=== PATIENT | female | born 2000 | race Caucasian/White ===

== ENCOUNTER 2019-03-17 13:38 | Emergency (ER) | payer MEDICAID ==
[~2019-03-17] VITALS: Ht 157 cm; Wt 57.0 kg
[~2019-03-17 13:38] MED LIST: ACET118E; CLN.1T; CONCERTA; IBUP-792; MIRLAX; PHENERGAN; PRM25T; PROM25SU10 PR; concerta
--- NOTE | 2019-03-17 13:58 | ED GU-Female ---
General Chief Complaint: RESIDENTIAL DIRECTOR Stated Complaint: VAGINAL DISCHARGE;CRAMPING; 12WKS Nursing Triage Note: COMPLAINS OF ABD CRAMPING AND WHITE DISCHARGE STARTING YESTERDAY. REPORTS SHE IS 12 WEEKS GESTATION. STATES SHE CALLED DR JACOBS WHO TOLD HER TO COME TO HIS OFFICE IN [place] BUT SHE DID NOT HAVE TRANSPORATION SO SHE DECIDED TO COME TO THE ER. Nursing Sepsis Screen: No Definite Risk Source: patient Exam Limitations: no limitations History of Present Illness Date Seen by Provider: Mar 17, 2019 Time Seen by Provider: 13:55 Initial Comments Parvez comes in today with reports of lower abdominal cramping bilaterally, yellowish white vaginal discharge since yesterday. 12 weeks with twins. She denies any vaginal bleeding. . She follows with Dr. Hampton and has seen him already. Timing/Duration: constant Severity/Quality: moderate Location: suprapubic Radiation: none Activities at Onset: none Prior Genitourinary Problems: none Associated Symptoms: denies symptoms Allergies and Home Medications Allergies Coded Allergies: metoclopramide (Verified Allergy, Unknown, 02/27/16) Home Medications Unable to Obtain Active Prescriptions or Reported Meds Patient Home Medication List Home Medication List Reviewed: Yes Review of Systems Review of Systems Constitutional: see HPI EENTM: see HPI Respiratory: no symptoms reported Cardiovascular: no symptoms reported Genitourinary: no symptoms reported Expected Date of Delivery: Sep 25, 2019 Musculoskeletal: no symptoms reported Skin: no symptoms reported Psychiatric/Neurological: No Symptoms Reported Past Skwgvfk-Wrzkcs-Kuwtac Hx Patient Social History Alcohol Use: Denies Use Recreational Drug Use: Yes Drug of Choice: POT Smoking Status: Current Everyday Smoker Recent Foreign Travel: No Contact w/Someone Who Travel: No Recent Infectious Disease Expo: No Recent Hopitalizations: Yes Physical Abuse: No Sexual Abuse: No Mistreated: No Fear: No Immunizations Up To Date Tetanus Booster (TDap): Less than 5yrs PED Vaccines UTD: Yes Seasonal Allergies Seasonal Allergies: No Past Medical History Surgeries: Yes (bowel obstruction, appendectomy 200) Appendectomy, Bowel Surgery Respiratory: No Cardiac: No Neurological: No : Yes Expected Date of Delivery: Sep 25, 2019 Reproductive Disorders: No Gastrointestinal: Yes (bowel obstruction s/p appy) Musculoskeletal: No Endocrine: No Cancer: No Psychosocial: Yes ADD/ADHD, Suicide Attempts Integumentary: No Blood Disorders: No Family Medical History Patient reports no known family medical history. No Pertinent Family Hx Physical Exam Vital Signs Vital Signs - First Documented 03/17/19 13:43 Temp 36.7 Pulse 96 Resp 16 B/P (MAP) 110/72 (85) Pulse Ox 98 O2 Delivery Room Air Capillary Refill : Less Than 3 Seconds Height, Weight, BMI Height: 5'2.00" Weight: 114lbs. 0.0oz. 51.696197zc; 23.00 BMI Method:Stated General Appearance: WD/WN, no apparent distress Neck: non-tender, full range of motion Respiratory: no respiratory distress, no accessory muscle use Gastrointestinal: normal bowel sounds, non tender, soft Pelvic: normal external exam, discharge (Whitish discharge from the cervix. No cervical motion tenderness) Neurologic/Psychiatric: alert, normal mood/affect, oriented x 3 Skin: normal color, warm/dry Progress/Results/Core Measures Suspected Sepsis Recent Fever Within 48 Hours: No Infection Criteria Present: None New/Unexplained Altered Menta: No Sepsis Screen: No Definite Risk SIRS Temperature: Pulse: 96 Respiratory Rate: 16 Laboratory Tests 03/17/19 14:04: White Blood Count 8.6 Blood Pressure 110 /72 Mean: 85 Laboratory Tests 03/17/19 14:04: Platelet Count 278 Results/Orders Lab Results Laboratory Tests Test 03/17/19 14:04 03/17/19 14:09 Range/Units White Blood Count 8.6 4.3-11.0 10^3/uL Red Blood Count 3.55 L 4.35-5.85 10^6/uL Hemoglobin 11.4 L 11.5-16.0 G/DL Hematocrit 32 L 35-52 % Mean Corpuscular Volume 90 80-99 FL Mean Corpuscular Hemoglobin 32 25-34 PG Mean Corpuscular Hemoglobin Concent 36 32-36 G/DL Red Cell Distribution Width 12.1 10.0-14.5 % Platelet Count 278 130-400 10^3/uL Mean Platelet Volume 9.1 7.4-10.4 FL Neutrophils (%) (Auto) 75 42-75 % Lymphocytes (%) (Auto) 15 12-44 % Monocytes (%) (Auto) 8 0-12 % Eosinophils (%) (Auto) 2 0-10 % Basophils (%) (Auto) 0 0-10 % Neutrophils # (Auto) 6.5 1.8-7.8 X 10^3 Lymphocytes # (Auto) 1.3 1.0-4.0 X 10^3 Monocytes # (Auto) 0.7 0.0-1.0 X 10^3 Eosinophils # (Auto) 0.2 0.0-0.3 10^3/uL Basophils # (Auto) 0.0 0.0-0.1 10^3/uL Urine Color YELLOW Urine Clarity CLEAR Urine pH 5 5-9 Urine Specific [place] 1.030 H 1.016-1.022 Urine Protein 1+ H NEGATIVE Urine Glucose (UA) NEGATIVE NEGATIVE Urine Ketones NEGATIVE NEGATIVE Urine Nitrite NEGATIVE NEGATIVE Urine Bilirubin NEGATIVE NEGATIVE Urine Urobilinogen NORMAL NORMAL MG/DL Urine Leukocyte Esterase NEGATIVE NEGATIVE Urine RBC (Auto) 1+ H NEGATIVE Urine RBC RARE /HPF Urine WBC 5-10 H /HPF Urine Squamous Epithelial Cells 25-50 H /HPF Urine Crystals NONE /LPF Urine Bacteria MODERATE H /HPF Urine Casts NONE /LPF Urine Mucus NEGATIVE /LPF Urine Culture Indicated YES Urine Opiates Screen NEGATIVE NEGATIVE Urine Oxycodone Screen NEGATIVE NEGATIVE Urine Methadone Screen NEGATIVE NEGATIVE Urine Propoxyphene Screen NEGATIVE NEGATIVE Urine Barbiturates Screen NEGATIVE NEGATIVE Ur Tricyclic Antidepressants Screen NEGATIVE NEGATIVE Urine Phencyclidine Screen NEGATIVE NEGATIVE Urine Amphetamines Screen NEGATIVE NEGATIVE Urine Methamphetamines Screen NEGATIVE NEGATIVE Urine Benzodiazepines Screen NEGATIVE NEGATIVE Urine Cocaine Screen NEGATIVE NEGATIVE Urine Cannabinoids Screen POSITIVE H NEGATIVE Micro Results Microbiology 03/17/19 Genital Culture, Resulted Pending 03/17/19 Wet Prep - Final, Resulted My Orders Orders - MARKY WADE APRN Wet Prep (03/17/19 13:51) Neisseria Gonorrhea Swab (03/17/19 13:51) Genital Culture (03/17/19 13:51) Chlamydia Trachomatis Swab (03/17/19 13:51) Cbc With Automated Diff (03/17/19 13:51) Ua Culture If Indicated (03/17/19 13:51) Drug Screen Stat (Urine) (03/17/19 14:09) Urine Culture (03/17/19 14:09) Rocephin 1 Gm Iv (1x Dose) (03/17/19 14:45) Azithromycin Tablet (Zithromax Tablet) (03/17/19 14:45) Vital Signs/I&O 03/17/19 13:43 Temp 36.7 Pulse 96 Resp 16 B/P (MAP) 110/72 (85) Pulse Ox 98 O2 Delivery Room Air Capillary Refill : Less Than 3 Seconds Blood Pressure Mean: 85 Departure Impression Primary Impression: Bacterial vaginosis Disposition: HOME, SELF-CARE Condition: Stable Departure-Patient Inst. Decision time for Depature: 14:45 Referrals: NO,LOCAL PHYSICIAN (PCP/Family) Primary Care Physician Patient Instructions: NO INSTRUCTIONS GIVEN Add. Discharge Instructions: 1. Return to ER for any concerns 2. Follow-up with your doctor next week 3. All discharge instructions reviewed with patient and/or family. Voiced understanding. Scripts Clindamycin HCl (Clindamycin HCl) 300 Mg Capsule 300 MG PO BID, #14 CAP Prov: MARKY WADE PLASTIC PRESS OPERATOR 03/17/19 MARKY WADE PLASTIC PRESS OPERATOR Mar 17, 2019 13:58
[2019-03-17 14:12] LABS: BASOPHILS % (AUTO) 0 % (0-10); EOSINOPHILS # (AUTO) 0.2 10^3/uL (0.0-0.3); EOSINOPHILS % (AUTO) 2 % (0-10); HEMATOCRIT 32 % (35-52); HEMOGLOBIN 11.4 G/DL (11.5-16.0); LYMPHOCYTES # (AUTO) 1.3 X 10^3 (1.0-4.0); LYMPHOCYTES % (AUTO) 15 % (12-44); MEAN CORPUSCULAR HEMOGLOBIN 32 PG (25-34); MEAN CORPUSCULAR HGB CONC 36 G/DL (32-36); MEAN CORPUSCULAR VOLUME 90 FL (80-99); MEAN PLATELET VOLUME 9.1 FL (7.4-10.4); MONOCYTES # (AUTO) 0.7 X 10^3 (0.0-1.0); MONOCYTES % (AUTO) 8 % (0-12); NEUTROPHILS # (AUTO) 6.5 X 10^3 (1.8-7.8); NEUTROPHILS % (AUTO) 75 % (42-75); PLATELET COUNT 278 10^3/uL (130-400); RED CELL DISTRIBUTION WIDTH 12.1 % (10.0-14.5); WHITE BLOOD COUNT 8.6 10^3/uL (4.3-11.0)
[2019-03-17 14:30] LABS: BILIRUBIN,URINE NEGATIVE (NEGATIVE); CLARITY,URINE CLEAR; COLOR,URINE YELLOW; GLUCOSE, URINE (UA) NEGATIVE (NEGATIVE); KETONES,URINE NEGATIVE (NEGATIVE); LEUKOCYTE ESTERASE ,URINE NEGATIVE (NEGATIVE); NITRITE,URINE NEGATIVE (NEGATIVE); PH,URINE 5 (5-9); PROTEIN,URINE 1+ (NEGATIVE); UROBILINOGEN,URINE NORMAL (NORMAL)
[2019-03-17 14:31] LABS: BACTERIA,URINE MODERATE /HPF; RBC,URINE RARE /HPF
[2019-03-17 14:32] LABS: SQUAMOUS EPITHELIAL CELL,UR 25-50 /HPF
[2019-03-17 14:34] LABS: AMPHETAMINE SCREEN, URINE NEGATIVE (NEGATIVE); BARBITURATE SCREEN URINE NEGATIVE (NEGATIVE); BENZODIAZEPINES SCREEN URINE NEGATIVE (NEGATIVE); CANNABINOID SCREEN, URINE POSITIVE (NEGATIVE); COCAINE SCREEN URINE NEGATIVE (NEGATIVE); METHADONE STAT NEGATIVE (NEGATIVE); METHAMPHETAMINE SCREEN URINE S NEGATIVE (NEGATIVE); OPIATE SCREEN URINE NEGATIVE (NEGATIVE); OXYCODONE STAT NEGATIVE (NEGATIVE); PROPOXYPHENE STAT NEGATIVE (NEGATIVE); TRICYCLIC ANTIDEPRESSANTS SCRE NEGATIVE (NEGATIVE)
[2019-03-17] MEDS ORDERED: cefTRIAXone FOR IV USE 1,000 MG in WATER (STERILE) FOR INJECTION 10 ML IV ONE (14:45)
[2019-03-17] MEDS ORDERED: AZITHROMYCIN 250 MG TAB (ZITHROMAX) PO SCH (14:45)
[2019-03-17] MEDS ORDERED: CLIN300C11 PO (14:46)
[2019-03-17 15:00] VITALS: BP 110/72
[2019-03-17] MEDS ORDERED: cefTRIAXone 1,000 MG/2.86 ml vial (IM ONLY) IM SCH (15:00)
[2019-03-17] MEDS ORDERED: LIDOCAINE 1% INJ 20 ML 20 ML VIAL INJ ONE (15:00)
== END 2019-03-17 15:02 | disposition home or self-care (01) ==
LOC: EDUNIT# 13:38 → ER 13:39
DX: O23.591 Infection of other part of genital tract in pregnancy, first trimester (principal); B96.89 Other specified bacterial agents as the cause of diseases classified elsewhere; O30.001 Twin pregnancy, unspecified number of placenta and unspecified number of amniotic sacs, first trimester; O99.341 Other mental disorders complicating pregnancy, first trimester; F90.9 Attention-deficit hyperactivity disorder, unspecified type; O99.331 Smoking (tobacco) complicating pregnancy, first trimester; F17.200 Nicotine dependence, unspecified, uncomplicated; Z90.49 Acquired absence of other specified parts of digestive tract; Z3A.12 12 weeks gestation of pregnancy; Z88.8 Allergy status to other drugs, medicaments and biological substances; Z91.5 Personal history of self-harm
CPT/HCPCS: 36415; 80306; 81000; 85025; 87070; 87088; 87205; 87210; 87491; 87591; 99284

== ENCOUNTER 2019-05-02 08:29 | Observation (INO) | payer MEDICAID ==
[~2019-05-02] VITALS: Ht 157 cm; Wt 58.1 kg
[~2019-05-02 08:29] MED LIST changes: +CLIN300C11 PO
--- NOTE | 2019-05-02 09:00 | NUR ---
FHT DOPPLERED AT THIS TIME. PT R SIDE -FHT 160 PT L SIDE-FHT 164
[2019-05-02 09:01] LABS: BASOPHILS % (AUTO) 0 % (0-10); EOSINOPHILS # (AUTO) 0.3 10^3/uL (0.0-0.3); EOSINOPHILS % (AUTO) 3 % (0-10); LYMPHOCYTES # (AUTO) 1.4 X 10^3 (1.0-4.0); LYMPHOCYTES % (AUTO) 16 % (12-44); MEAN CORPUSCULAR HGB CONC 36 G/DL (32-36); MEAN CORPUSCULAR VOLUME 92 FL (80-99); MEAN PLATELET VOLUME 9.1 FL (7.4-10.4); MONOCYTES # (AUTO) 0.5 X 10^3 (0.0-1.0); MONOCYTES % (AUTO) 5 % (0-12); NEUTROPHILS # (AUTO) 6.6 X 10^3 (1.8-7.8); NEUTROPHILS % (AUTO) 75 % (42-75); RED CELL DISTRIBUTION WIDTH 12.6 % (10.0-14.5)
[2019-05-02 09:05] LABS: HEMATOCRIT 28 % (35-52); HEMOGLOBIN 10.1 G/DL (11.5-16.0); MEAN CORPUSCULAR HEMOGLOBIN 33 PG (25-34); PLATELET COUNT 152 10^3/uL (130-400); WHITE BLOOD COUNT 9.8 10^3/uL (4.3-11.0)
[2019-05-02 09:16] LABS: ALANINE AMINOTRANSFERASE 31 U/L (0-55); ALBUMIN 3.4 GM/DL (3.2-4.5); ALKALINE PHOSPHATASE 41 U/L (40-136); BILIRUBIN,TOTAL 0.3 MG/DL (0.1-1.0); BUN/CREATININE RATIO 9; CALCIUM 9.1 MG/DL (8.5-10.1); CARBON DIOXIDE 21 MMOL/L (21-32); CHLORIDE 108 MMOL/L (98-107); CREATININE SERUM 0.53 MG/DL (0.60-1.30); GFR ESTIMATED > 60; GLUCOSE 97 MG/DL (70-105); POTASSIUM 3.8 MMOL/L (3.6-5.0); SODIUM 137 MMOL/L (135-145); TOTAL PROTEIN 6.4 GM/DL (6.4-8.2)
[2019-05-02 09:32] LABS: INR 1.1 (0.8-1.4); PROTHROMBIN TIME PATIENT 14.4 SEC (12.2-14.7)
[2019-05-02] MEDS ORDERED: PREN-53 PO (09:37)
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
[2019-05-02 09:59] LABS: MAGNESIUM 1.3 MG/DL (1.6-2.4)
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
[2019-05-02 11:20] LABS: BILIRUBIN,URINE NEGATIVE (NEGATIVE); CLARITY,URINE CLEAR; GLUCOSE, URINE (UA) NEGATIVE (NEGATIVE); KETONES,URINE NEGATIVE (NEGATIVE); LEUKOCYTE ESTERASE ,URINE NEGATIVE (NEGATIVE); NITRITE,URINE NEGATIVE (NEGATIVE); PROTEIN,URINE NEGATIVE (NEGATIVE)
[2019-05-02 11:21] LABS: COLOR,URINE YELLOW
[2019-05-02] MEDS ORDERED: CYCLOBENZAPRINE 10 MG (FLEXERIL) TAB PO SCH (11:30)
[2019-05-02] MEDS ORDERED: oxyCODONE/APAP 5/325MG (PERCOCET 5) TABLET PO ONE (11:30)
[2019-05-02 11:40] LABS: BACTERIA,URINE LARGE /HPF
[2019-05-02 11:43] VITALS: BP 102/60
[2019-05-02 11:45] LABS: AMPHETAMINE SCREEN, URINE NEGATIVE (NEGATIVE); BARBITURATE SCREEN URINE NEGATIVE (NEGATIVE); BENZODIAZEPINES SCREEN URINE NEGATIVE (NEGATIVE); CANNABINOID SCREEN, URINE NEGATIVE (NEGATIVE); COCAINE SCREEN URINE NEGATIVE (NEGATIVE); METHADONE STAT NEGATIVE (NEGATIVE); METHAMPHETAMINE SCREEN URINE S NEGATIVE (NEGATIVE); OPIATE SCREEN URINE NEGATIVE (NEGATIVE); OXYCODONE STAT NEGATIVE (NEGATIVE); PROPOXYPHENE STAT NEGATIVE (NEGATIVE); TRICYCLIC ANTIDEPRESSANTS SCRE NEGATIVE (NEGATIVE)
--- NOTE | 2019-05-02 12:00 | NUR ---
REPORT FROM ANAYA PENA.
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
--- NOTE | 2019-05-02 13:05 | NUR ---
DR JACOBS TO SEE PT, NEW ORDERS RECEIVED. PLAN OF CARE UPDATED WITH PT.
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
--- NOTE | 2019-05-02 13:40 | NUR ---
PT EATING LUNCH.
--- NOTE | 2019-05-02 14:20 | NUR ---
TWINS FHTS DOPPLERED AT 157 AND 166. IV HEP LOCKED REMOVED.
--- NOTE | 2019-05-02 14:25 | NUR ---
DISCHARGE INSTRUCTIONS EXPLAINED AND SIGNED BY PT, PT DENIES QUESTIONS OR CONCERNS, NO DISTRESS NOTED, REVIEWED LABOR PRECAUTIONS WITH PT AND PTS MOTHER, PT VERBALIZES UNDERSTANDING, WRITTEN PRESCRIPTIONS GIVEN TO PT.
--- NOTE | 2019-05-02 14:30 | NUR ---
PT TAKEN BY WC TO PRIVATE CAR WITH THIS RN AND MOTHER AT SIDE, PT DENIES NEEDS OR QUESTIONS WILL FOLLOW UP WITH DR JACOBS PREVIOUSLY SCHEDULED OR RETURN TO LABOR AND DELIVERY WITH C/O.
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
--- NOTE | 2019-05-03 11:00 | NUR ---
PT REPORTS VAGINAL AND LOWER ABDOMINAL PAIN AT THIS TIME AND REQUEST SOMETHING FOR PAIN. DR JUNG INFORMED.
--- NOTE | 2019-05-03 11:10 | NUR ---
VISUAL EXAM DONE OF PT PERINEUM AFTER COMPLAINTS OF VAGINAL PAIN. NO BLOOD, PRESENTING PART, OR FLUIDS NOTICED ON THE EXTERNAL GENITALIA. SMALL AMOUNT OF WHITE VAGINAL DISCHARGE NOTED.
== END 2019-05-02 14:30 | disposition home or self-care (01) ==
LOC: EDUNIT# 08:29 → ER 08:31 → LDRP 11:25 → UNDOADMOB 11:25 → LDRP 12:00 → UNDODISOB 14:30
PROVIDERS: ADMIT Obstetrics & Gynecology; ATTEND Obstetrics & Gynecology
DX: O9A.212 Injury, poisoning and certain other consequences of external causes complicating pregnancy, second trimester (principal); Z3A.19 19 weeks gestation of pregnancy; M54.2 Cervicalgia; R10.9 Unspecified abdominal pain; V49.9XXA Car occupant (driver) (passenger) injured in unspecified traffic accident, initial encounter; Z88.8 Allergy status to other drugs, medicaments and biological substances; F17.210 Nicotine dependence, cigarettes, uncomplicated; F90.9 Attention-deficit hyperactivity disorder, unspecified type; F41.9 Anxiety disorder, unspecified; F32.9 Major depressive disorder, single episode, unspecified; Z91.5 Personal history of self-harm
CPT/HCPCS: 36415; 70450; 71045; 72125; 72170; 76810; 76815; 80053; 80306; 80320; 81000; 83735; 83874; 84484; 84703; 85025; 85610; 85730; 93005; G0378

== ENCOUNTER 2019-05-22 21:30 | Outpatient (CLI) | payer MEDICAID ==
[~2019-05-22] VITALS: Ht 157.5 cm; Wt 62.7 kg
[~2019-05-22 21:30] MED LIST changes: +PREN-53 PO
--- NOTE | 2019-05-22 21:35 | NUR ---
CRISPIN HAYWOOD presented to unit via W/C from ED, accompanied by MOTHER, with c/o POSSIBLE CONTRACTIONS, DECREASED FM. CRISPIN HAYWOOD weighed, gowned, voided, and to bed. EFHM and TOCO applied, VS taken. CRISPIN HAYWOOD oriented to bed controls, call light, TV, heat, and A/C controls.
[2019-05-22 21:45] VITALS: BP 111/61
[2019-05-22 21:57] LABS: BILIRUBIN,URINE NEGATIVE (NEGATIVE); CLARITY,URINE SL CLOUDY; COLOR,URINE YELLOW; GLUCOSE, URINE (UA) NEGATIVE (NEGATIVE); KETONES,URINE NEGATIVE (NEGATIVE); LEUKOCYTE ESTERASE ,URINE NEGATIVE (NEGATIVE); NITRITE,URINE NEGATIVE (NEGATIVE); PROTEIN,URINE NEGATIVE (NEGATIVE)
[2019-05-22] MEDS ORDERED: ACET-789 PO (21:57)
[2019-05-22 22:17] LABS: BACTERIA,URINE TRACE /HPF; WBC,URINE RARE /HPF
[2019-05-22] MEDS ORDERED: APAP 300 MG/CODEINE 30 MG (TYLENOL #3) TAB PO ONE (22:30)
--- NOTE | 2019-05-22 22:35 | NUR ---
D/C instructions given & explained per Faith Lynn, RN, pt. verbalized understanding & signed, copy of D/C instructions to pt. Pt. left WS ambulatory escorted by mother, to home via private vehicle.
[2019-05-23 02:26] LABS: AMPHETAMINE SCREEN, URINE NEGATIVE (NEGATIVE); BARBITURATE SCREEN URINE NEGATIVE (NEGATIVE); BENZODIAZEPINES SCREEN URINE NEGATIVE (NEGATIVE); CANNABINOID SCREEN, URINE NEGATIVE (NEGATIVE); COCAINE SCREEN URINE NEGATIVE (NEGATIVE); METHADONE STAT NEGATIVE (NEGATIVE); METHAMPHETAMINE SCREEN URINE S NEGATIVE (NEGATIVE); OPIATE SCREEN URINE NEGATIVE (NEGATIVE); OXYCODONE STAT NEGATIVE (NEGATIVE); PROPOXYPHENE STAT NEGATIVE (NEGATIVE); TRICYCLIC ANTIDEPRESSANTS SCRE NEGATIVE (NEGATIVE)
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
== END 2019-05-22 22:35 | disposition home or self-care (01) ==
LOC: WSo 21:30 → LDRP 21:31 → WSo 22:35
PROVIDERS: ATTEND Obstetrics & Gynecology
DX: O36.8120 Decreased fetal movements, second trimester, not applicable or unspecified (principal); Z3A.22 22 weeks gestation of pregnancy
CPT/HCPCS: 80306; 81000

== ENCOUNTER 2019-06-01 17:28 | Outpatient (CLI) | payer MEDICAID ==
[~2019-06-01] VITALS: Ht 157.5 cm; Wt 64.0 kg
--- NOTE | 2019-06-01 17:17 | NUR ---
CRISPIN HAYWOOD presented to unit via ambulation, accompanied by family members, with c/o back pain, rib pain and cramping x2 days. Pt. weighed, gowned, voided, and to bed. EFHM and TOCO applied, VS taken. Pt. oriented to bed controls, call light, TV, heat, and A/C controls.
[~2019-06-01 17:28] MED LIST changes: +ACET-789 PO
[2019-06-01 17:35] VITALS: BP 111/67
--- NOTE | 2019-06-01 17:40 | NUR ---
EFM applied to Lt.lower abd- Twin A HR 150. pt stating decreased FM prior to admission. approx 2-3 times in 24 hour period. reports lower back pain/rib/cramping pain x2 days. decreased FM with twin A. attempting to find Twin B FHR with EFM.
--- NOTE | 2019-06-01 17:50 | NUR ---
@ bedside r/t unable to find twin B HR.
--- NOTE | 2019-06-01 17:56 | NUR ---
twin A HR 150's. +FM noted. twin B HR located via ultrasound by .
--- NOTE | 2019-06-01 18:00 | NUR ---
Twin B 164 HR via doppler. 1802- Twin B HR [address] de luna @ bedside. 1807- SVE per this RN. closed, anterior, 50%. update given to
--- NOTE | 2019-06-01 18:05 | NUR ---
CHITO carbajal'd per Dr's order.
[2019-06-01] MEDS ORDERED: D5 LR IV SOLUTION 1,000 ML IV ONE ×2 (18:10→19:57)
--- NOTE | 2019-06-01 18:30 | NUR ---
#20g IV to Lt.wrist x1 attempt by JEAN Joya. site patent. admission labs collected from site prior to IVF's infusing.
--- NOTE | 2019-06-01 18:41 | NUR ---
verbal order received for Indomethacin from .
[2019-06-01] MEDS ORDERED: INDOMETHACIN 25 MG (INDOCIN) CAP PO ONE (18:43)
[2019-06-01] MEDS ORDERED: INDOMETHACIN 25 MG (INDOCIN) CAP PO NR (18:45)
[2019-06-01 18:50] LABS: BASOPHILS % (AUTO) 0 % (0-10); EOSINOPHILS # (AUTO) 0.2 10^3/uL (0.0-0.3); EOSINOPHILS % (AUTO) 2 % (0-10); HEMATOCRIT 28 % (35-52); HEMOGLOBIN 9.6 G/DL (11.5-16.0); LYMPHOCYTES % (AUTO) 16 % (12-44); MEAN CORPUSCULAR HEMOGLOBIN 33 PG (25-34); MEAN CORPUSCULAR HGB CONC 35 G/DL (32-36); MEAN CORPUSCULAR VOLUME 94 FL (80-99); MEAN PLATELET VOLUME 9.2 FL (7.4-10.4); MONOCYTES % (AUTO) 8 % (0-12); NEUTROPHILS # (AUTO) 9.1 X 10^3 (1.8-7.8); NEUTROPHILS % (AUTO) 74 % (42-75); PLATELET COUNT 285 10^3/uL (130-400); RED CELL DISTRIBUTION WIDTH 11.8 % (10.0-14.5); WHITE BLOOD COUNT 12.3 10^3/uL (4.3-11.0)
--- NOTE | 2019-06-01 18:54 | NUR ---
verbal report on CBC given to .
--- NOTE | 2019-06-01 19:06 | NUR ---
SVE no change from admission exam.
[2019-06-01 19:13] LABS: ALANINE AMINOTRANSFERASE 12 U/L (0-55); ALBUMIN 3.4 GM/DL (3.2-4.5); ALKALINE PHOSPHATASE 62 U/L (40-136); BILIRUBIN,TOTAL 0.2 MG/DL (0.1-1.0); BUN/CREATININE RATIO 7; CALCIUM 9.1 MG/DL (8.5-10.1); CARBON DIOXIDE 21 MMOL/L (21-32); CHLORIDE 109 MMOL/L (98-107); CREATININE SERUM 0.61 MG/DL (0.60-1.30); GFR ESTIMATED > 60; GLUCOSE 74 MG/DL (70-105); SODIUM 140 MMOL/L (135-145); TOTAL PROTEIN 6.5 GM/DL (6.4-8.2)
[2019-06-01 19:14] LABS: BILIRUBIN,URINE NEGATIVE (NEGATIVE); CLARITY,URINE CLEAR; COLOR,URINE YELLOW; GLUCOSE, URINE (UA) NEGATIVE (NEGATIVE); KETONES,URINE NEGATIVE (NEGATIVE); LEUKOCYTE ESTERASE ,URINE NEGATIVE (NEGATIVE); NITRITE,URINE NEGATIVE (NEGATIVE); PH,URINE 5.5 (5-9); PROTEIN,URINE NEGATIVE (NEGATIVE)
--- NOTE | 2019-06-01 19:15 | NUR ---
report given to JEAN Louise.
[2019-06-01 19:34] LABS: AMORPHOUS SEDIMENT,UR FEW AMOR URATES /LPF; BACTERIA,URINE NEGATIVE /HPF
[2019-06-01 19:43] VITALS: BP 111/67
--- NOTE | 2019-06-01 20:10 | NUR ---
Pt. complains that hutson is the only discomfort that she is in at the moment. Discomfort discussed with and states that hutson can be removed at this time. Hutson removed. Pt. tolerated well.
[2019-06-01] MEDS ORDERED: CITRIC ACID/SOB CIT (BICITRA) 30 ML UDC ONE (20:13)
[2019-06-01] MEDS ORDERED: D5 LR IV SOLUTION 1,000 ML IV SCH (20:15)
[2019-06-01] MEDS ORDERED: CITRIC ACID/SOB CIT (BICITRA) 30 ML UDC PO ONE (20:15)
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
--- NOTE | 2019-06-01 21:10 | History & Physical ---
History and Physical Date Seen by Provider: Jun 01, 2019 Time Seen by Provider: 20:48 This patient is a 18-year-old [address] white female patient of Dr. Hardin for whom I am covering. She had her LMP on December 21, 2018 and is at somewhere around 23 weeks gestation with a twin - complaining of back pain contractions and pressure. She also complains of decreased movement for one of the twins. She denies rupture membranes or bleeding. She indicates that she has 3 different due dates ranging from September 25, 2019 September 27, 2019 and September 29, 2019. She believes that Dr. Hardin is using September 25, 2019 for her EDC. I do not have access to records of Dr. Hardin however a food checker from his clinic indicates that the records she has available for this patient shows that Dr. Hardin is using September 27, 2019 for her EDC. That EDC puts her at 23 weeks gestation. The patient does understand that delivery of twins at 23 weeks gestation with present quite a challenge for those twins - she does request that everything possible be done for her babies She presented with contractions every 3-4 minutes. Nurse was able to locate 1 heart beat and was unable to determine a second heartbeat. I performed a very limited bedside ultrasound with a relatively ancient ultrasound machine that did confirm a heart rate for both fetuses. It appears to me that this is a mono mono twin gestation with fairly significant polyhydramnios. I do not have access to a modern ultrasound machine or to an technology architect with access to the hospital machines so could not perform a more detailed exam. The patient did not know the specific nature of the twin gestation other than having been told that they would be identical twins and that they appeared to be males. She did indicate that her physician thought there might be a small portion of a membrane present on one of the exams that he performed but she had also been told that both fetuses were in one gestational sac. This patient reports that within the last 2 weeks and amniocentesis was performed - she did not know the reason for the amniocentesis and does not know the results remaining tests performed on the amniotic fluid. This patient further reports that she was given a dose of Depo-Provera in the range of 1 week before she had a positive test because of spotting and breakthrough bleeding in the presence of a negative test. The food checker on-call was apprised of this patient and that it was her desire if she will require delivery that everything possible be done for her babies. Dr. Quintero, the food checker contacted [facility] for possible need for a NICU for very babies - during that contact Dr. Quintero apparently requested transfer to [facility] and I was asked to speak to the OB client development consultant which happened to be Dr. Roe. I explained that I had not confirmed nor ruled out premature labor and that because of the degree of prematurity the intensity of the contractions and desires if the patient, that she had been given IV fluids and a single dose of oral indomethacin. The patient's contractions did lessen. In the course of the discussion with Dr. Roe he expressed significant concern for a twin-twin transfusion as an explanation for the polyhydramnios that I had noted - he recommended [facility] to [facility] and agreed to accept this patient in transfer even if the patient did not manifest overt labor. This has been discussed with the patient who agrees with transfer and transferred to [facility] is pending Allergies are none Medications are vitamins Past medical history is essentially negative Past surgical history is negative Past obstetric history is significant for 1 Family history is noncontributory Social history the patient denies smoking drugs or alcohol abuse she has no history of STDs HEENT exam is normal Neck is supple no lymphadenopathy no thyromegaly Abdomen is gravid fundal height is well above that expected even for 23 week twin gestation. Extremities show no clubbing or cyanosis. There is no Homans sign. Pelvic exam showed a cervix that was described as closed and 50 percent effaced - on repeat exam by the same nurse at a little over an hour later she reported that the cervix was maybe a bit shorter and may be starting to form a dimple. Laboratory Tests Test 06/01/19 16:30 06/01/19 18:51 Range/Units White Blood Count 12.3 H 4.3-11.0 10^3/uL Red Blood Count 2.95 L 4.35-5.85 10^6/uL Hemoglobin 9.6 L 11.5-16.0 G/DL Hematocrit 28 L 35-52 % Mean Corpuscular Volume 94 80-99 FL Mean Corpuscular Hemoglobin 33 25-34 PG Mean Corpuscular Hemoglobin Concent 35 32-36 G/DL Red Cell Distribution Width 11.8 10.0-14.5 % Platelet Count 285 130-400 10^3/uL Mean Platelet Volume 9.2 7.4-10.4 FL Neutrophils (%) (Auto) 74 42-75 % Lymphocytes (%) (Auto) 16 12-44 % Monocytes (%) (Auto) 8 0-12 % Eosinophils (%) (Auto) 2 0-10 % Basophils (%) (Auto) 0 0-10 % Neutrophils # (Auto) 9.1 H 1.8-7.8 X 10^3 Lymphocytes # (Auto) 2.0 1.0-4.0 X 10^3 Monocytes # (Auto) 1.0 0.0-1.0 X 10^3 Eosinophils # (Auto) 0.2 0.0-0.3 10^3/uL Basophils # (Auto) 0.0 0.0-0.1 10^3/uL Sodium Level 140 135-145 MMOL/L Potassium Level 4.0 3.6-5.0 MMOL/L Chloride Level 109 H 98-107 MMOL/L Carbon Dioxide Level 21 21-32 MMOL/L Anion Gap 10 5-14 MMOL/L Blood Urea Nitrogen 4 L 7-18 MG/DL Creatinine 0.61 0.60-1.30 MG/DL Estimat Glomerular Filtration Rate > 60 BUN/Creatinine Ratio 7 Glucose Level 74 70-105 MG/DL Calcium Level 9.1 8.5-10.1 MG/DL Corrected Calcium 9.6 8.5-10.1 MG/DL Total Bilirubin 0.2 0.1-1.0 MG/DL Aspartate Amino Transf (AST/SGOT) 13 5-34 U/L Alanine Aminotransferase (ALT/SGPT) 12 0-55 U/L Alkaline Phosphatase 62 40-136 U/L Total Protein 6.5 6.4-8.2 GM/DL Albumin 3.4 3.2-4.5 GM/DL Urine Color YELLOW Urine Clarity CLEAR Urine pH 5.5 5-9 Urine Specific Spencer >=1.030 1.016-1.022 Urine Protein NEGATIVE NEGATIVE Urine Glucose (UA) NEGATIVE NEGATIVE Urine Ketones NEGATIVE NEGATIVE Urine Nitrite NEGATIVE NEGATIVE Urine Bilirubin NEGATIVE NEGATIVE Urine Urobilinogen 0.2 < = 1.0 MG/DL Urine Leukocyte Esterase NEGATIVE NEGATIVE Urine RBC (Auto) 1+ H NEGATIVE Urine RBC 2-5 H /HPF Urine WBC NONE /HPF Urine Crystals PRESENT H /LPF Urine Amorphous Sediment FEW BELKYS URATES H /LPF Urine Bacteria NEGATIVE /HPF Urine Casts NONE /LPF Urine Mucus MODERATE H /LPF Urine Culture Indicated NO Labs are as noted Assessment and plan twin at about 23 weeks gestation with care with Dr. Hardin who appears to have a mono mono twin gestation with polyhydramnios. I'm not certain as to the status of premature labor however the patient's contractions have slowed and spaced out with hydration and a single dose of oral indomethacin. The patient has been discussed with Dr. Roe at [facility] who has recommended transfer to [facility] with concern for twin-twin transfusion for a mono mono set of twins. The patient agrees with this plan and transfer is being arranged 23 week twin with apparent polyhydramnios, apparent mono mono chorionicity, and possibly early labor. As patient is stable she is being transferred to [facility] Allergies and Home Medications Allergies Coded Allergies: metoclopramide (Verified Allergy, Unknown, 02/27/16) Home Medications Acetaminophen with Codeine 1 Each Tablet, 1 EACH PO for PAIN-MODERATE (5-7), (Reported) Patient Home Medication List Home Medication List Reviewed: Yes RAMAKRISHNA RECIO MD Jun 01, 2019 21:10 POS
[2019-06-01 21:34] VITALS: BP 118/69
--- NOTE | 2019-06-01 22:23 | NUR ---
EMS on floor to transport pt. Pt. up to bathroom. Clothes changed. Pt. then loaded on gurney and transferred off of unit with EMS.
== END 2019-06-01 22:20 ==
LOC: LDRP 17:28 → WSo 17:28
PROVIDERS: ATTEND Obstetrics & Gynecology
DX: O40.2XX0 Polyhydramnios, second trimester, not applicable or unspecified (principal); O30.002 Twin pregnancy, unspecified number of placenta and unspecified number of amniotic sacs, second trimester; Z3A.23 23 weeks gestation of pregnancy
CPT/HCPCS: 36415; 80053; 81000; 85025; 96360; 99213

== ENCOUNTER 2020-10-25 15:29 | Emergency (ER) | payer MEDICAID ==
[~2020-10-25] VITALS: Ht 162 cm; Wt 127.0 kg
[~2020-10-25 15:29] MED LIST changes: -CLIN300C11 PO; +CLIN300C12 PO
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
[2020-10-25] MEDS ORDERED: L.E.T. SOLUTION 3 ML SYR TOP ONE (16:00)
--- NOTE | 2020-10-25 16:06 | Diagnostic Imaging Report ---
INDICATION: Left forearm injury. EXAMINATION: Two views of the left forearm. FINDINGS: No fracture, dislocation or other acute abnormality. IMPRESSION: Negative left forearm. Dictated by: Dictated on workstation # [id number]
[2020-10-25 16:53] VITALS: BP 123/70
== END 2020-10-25 16:53 | disposition home or self-care (01) ==
LOC: EDUNIT# 15:29 → ER 15:31
DX: S50.12XA Contusion of left forearm, initial encounter (principal); T23.272A Burn of second degree of left wrist, initial encounter; Z88.8 Allergy status to other drugs, medicaments and biological substances; Z77.22 Contact with and (suspected) exposure to environmental tobacco smoke (acute) (chronic); V86.99XA Unspecified occupant of other special all-terrain or other off-road motor vehicle injured in nontraffic accident, initial encounter
CPT/HCPCS: 73090; 99283; A4565